=== PATIENT | female | born 1960 | race Caucasian/White ===

== ENCOUNTER 2018-07-30 05:36 | Day surgery (SDC) | payer OTHER ==
[~2018-07-30] VITALS: Ht 165.1 cm; Wt 71.7 kg
[~2018-07-30 05:36] MED LIST: ALDACTONE100 MG PO; CORGARD40 MG PO; DESYREL300 MG PO; FLUTICASONE PRO16 GM NASAL; PROGESTERONE100 MG PO; PROZAC20 MG PO; VENTOLIN HFA 1818 GM INH; WELLBUTRIN SR150 MG PO; [UNRECOGNIZED DRUG - OTHER] SUBQ
[2018-07-30 06:48] LABS: CALCIUM 8.5 mg/dL (8.5-10.1); CREATININE 0.9 mg/dL (0.6-1.0); POTASSIUM 3.6 mmol/L (3.5-5.1)
[2018-07-30 07:48] VITALS: BP 108/74
[2018-07-30] MEDS ORDERED: NORCO 5-325 TA1 EACH PO (09:58)
[2018-07-30 12:22] VITALS: BP 95/60
[2018-07-30 13:05] VITALS: BP 95/60
--- NOTE | 2018-07-30 13:33 | NUR ---
PT ARRIVED TO ROOM AT APPROX 11:00 IN STABLE CONDITION. AND SISTER AT BEDSIDE. ASSESSMENT COMPLETED. A&O,X4. DENIES N/V AND PAIN. LAST BM YESTERDAY. S/P LAP KAREN, 4 LAP SITES INTACT, BANDAID, NO BLEEDING OR DRAINAGE NOTED. TOLERATING CLEARS DIET, ADVANCED TO REGULAR DIET FOR LUNCH ORDERED. PT ATE LUNCH NO PROBLEMS NOTED. PT URINATED X1 POST SURGERY. PT WALKED IN HALLWAYS, NO DIZZINESS NOTED AND STABLE ON FEET. DISCHARGE ORDERS ACTIVE. D/C INFORMATION DISCUSSED WITH PT AND FAMILY AT BEDSIDE. NEW SCRIPTS AND CARENOTES GIVEN. IV REMOVED, NO ACTIVE BLEEDING. PT LEFT IN STABLE CONDITION VIA WHEELCHAIR AT 13:37.
--- NOTE | 2018-07-31 14:06 | PATH ---
[facility] [address] [place] [address] PATHOLOGY RPT PROCEDURE Name: AARTI STALLINGS Room #: DEP [facility]..#: [id number] ������������������ Admission: 07/30/18 ������������������ Date of : 56 Discharge: 07/30/18 Report #: [id number] Path Case #: [id number] [facility] Accession Number: [id number] . 01 Material submitted: . gallbladder - GALLBLADDER . 01 Clinical history: . Gallstones . 02 Diagnosis: Gallbladder, cholecystectomy: - Mild chronic cholecystitis. - Cholelithiasis. (IUV:terri; 07/31/2018) MBR/07/31/2018 . 02 Electronically signed: . Paulette Mcgraw MD, Pathologist NPI- [id number] . 01 Gross description: . The specimen is received in formalin, labeled "Aarti [place], gallbladder". Received is an intact gallbladder measuring 10.3 x 3.6 x 3.1 cm in greatest dimensions displaying a blue-posada serosal surface. Opening the specimen reveals a velvety, bile-stained mucosa with a gallbladder wall thickness of 0.1 cm. Calculi are present displaying a bright yellow and multifaceted appearance, and no masses or lesions are noted grossly. [employer]ant sections, to include the proximal margin, are submitted in cassette A1. (CAA; 07/30/2018) QAC/QAC . 02 Pathologist provided ICD-10: K80.10 . 02 CPT . 531530 Specimen Comment: A courtesy copy of this report has been sent to Specimen Comment: [phone], . Specimen Comment: Report sent to / DR ENGLE Performed at: 01 [place] [id number] [address] [id number] MD Handy Medley MD Phone: [phone] Performed at: 02 [facility] [address] [place] [address] PATHOLOGY RPT PROCEDURE Name: HAYLIEAARTI Jerri Room #: DEP [facility].#: [id number] ������������������ Admission: 07/30/18 ������������������ Date of : 56 Discharge: 07/30/18 Report #: [id number] Path Case #: [id number] [address] [place] [id number] MD Paulette Mcgraw MD Phone: [phone]
--- NOTE | 2018-08-01 15:05 | O ---
[facility] [place] [address] OPERATIVE REPORT Name: LITTLE STALLINGS Room #: DEP [facility]#: [id number] Admission: 07/30/18 ������������������ Attend Phys: Tobi Gomez MD Discharge: 07/30/18 ������������������ Date of : 56 Report #: [id number] THIS REPORT FOR: //name// CC: ENRIQUE Gomez DATE OF SERVICE: 07/30/[address] Tobi Gomez and Dr. Enrique Hughes. PREOPERATIVE DIAGNOSES: Cholelithiasis, cholecystitis, biliary colic. POSTOPERATIVE DIAGNOSES: Cholelithiasis, cholecystitis, biliary colic. PROCEDURE: Laparoscopic cholecystectomy. SURGEON: Tboi Gomez MD PROSPECTING OBSERVER: Aure Sánchez RN ANESTHESIA: General. DESCRIPTION OF PROCEDURE: The patient was brought to the operating room and placed on operative table in the supine position. Sequential compression devices were in place for DVT prophylaxis. She received an appropriate preoperative dose of Mefoxin. The patient underwent a general endotracheal anesthesia and the abdomen was then prepped and draped in a sterile fashion. Skin and subcutaneous tissue around the umbilicus was then infiltrated with 0.5% Marcaine. Infraumbilical skin incision was then performed using #11 scalpel blade. Hemostasis obtained using electrocautery. Dissection was carried down through the subcutaneous tissue and the fascia, which was then grasped between 2 Gomez clamps and incised with the curved Bennett scissors. Peritoneum was entered and a pursestring suture of 0 Vicryl was then placed in the fascia. A 12 mm disposable Nataliia port was then inserted through the opening and held in place with the pursestring suture. Pneumoperitoneum obtained to a level of 10-15 mmHg. Laparoscope was inserted through this port and exploration was performed, which revealed somewhat thickened dilated gallbladder with numerous gallstones and some adhesions around the gallbladder. There were no other intra-abdominal abnormalities. Two lateral 5 mm Surgiport as well as an upper midline 12-mm Surgiport were all inserted under direct visualization after infiltration with 0.5% Marcaine. The gallbladder was then grasped and retracted superiorly and the adhesions around the liver and gallbladder were carefully dissected free using the hook electrocautery and the [place] dissector with electrocautery. The cystic duct and artery were then carefully dissected free. The triangle of safety was identified with a separate cystic artery and cystic duct. The [address] [address] OPERATIVE REPORT Name: LITTLE STALLINGS [id number] Admission: 07/30/18 ������������������ Attend Phys: Tobi Gomez MD Discharge: 07/30/18 ������������������ Date of : 56 Report #: [id number] common bile duct junction was also clearly identified. The cystic artery was then doubly clipped on each side and divided with the scissors. The cystic duct was then triply clipped on the common bile duct side and doubly clipped on the gallbladder side and divided with the scissors. The gallbladder was then dissected free from the bed using the hook electrocautery. Prior to completing the dissection, the gallbladder was retracted superiorly and the bed inspected for hemostasis, which was obtained using electrocautery and found to be intact. The gallbladder was then transected and brought out through the periumbilical port and sent as specimen to pathology. Port was then returned to the abdomen. The area was then copiously irrigated with warm saline solution, which was suctioned free. Hemostasis was checked and found to be intact. The ports were then all removed under direct visualization, hemostasis intact at each port site. Pneumoperitoneum was released and the periumbilical port was then also removed under direct visualization. Hemostasis intact at that port site as well. The periumbilical fascia was then closed using the 0 Vicryl pursestring suture. Skin was then closed using interrupted vertical mattress 5-0 nylon sutures. The wound was dressed with Band-Aids. The patient was then awakened from the general endotracheal anesthesia, extubated, and taken to recovery room in good condition. Estimated blood loss was approximately 10 mL and the patient tolerated the procedure well. All sponge, lap and instrument counts correct x 2. ��������������������������������������������� <ELECTRONICALLY SIGNED> ���������������������������������������� By: Tobi Gomez MD ��������������������������������������������� 08/01/18 1505 [id number] Tobi Gomez MD /nt
== END 2018-07-30 14:00 | disposition home or self-care (01) ==
LOC: OR 05:36 → TBA 05:36 → OR 11:00 → 4E 11:05 → OR 12:23 → ENTRNSPT 13:32 → EDTRNSPTSTS 13:34 → OR 14:00
PROVIDERS: Surgery
DX: K80.64 Calculus of gallbladder and bile duct with chronic cholecystitis without obstruction (principal); I10 Essential (primary) hypertension; J45.998 Other asthma; F32.9 Major depressive disorder, single episode, unspecified; Z88.2 Allergy status to sulfonamides; Z88.8 Allergy status to other drugs, medicaments and biological substances; Z79.899 Other long term (current) drug therapy; Z98.890 Other specified postprocedural states; Z98.41 Cataract extraction status, right eye; Z98.42 Cataract extraction status, left eye; Z79.891 Long term (current) use of opiate analgesic
CPT/HCPCS: 10783; 50010; 50101; 50411; 50555; 50558; 51474; 51489; 52266; 53314; 56462; 56524; 56528; 62110; 62900; 70005

== ENCOUNTER → 2018-09-17 | Outpatient (CLI) | payer OTHER ==
[~2018-09-17] MED LIST changes: +NORCO 5-325 TA1 EACH PO
== END ==
LOC: CAT 08:32
DX: Z13.6 Encounter for screening for cardiovascular disorders (principal); E78.00 Pure hypercholesterolemia, unspecified; Z82.49 Family history of ischemic heart disease and other diseases of the circulatory system